=== PATIENT | male | born 1975 | race Caucasian/White ===

== ENCOUNTER 2020-03-29 15:21 | Emergency (ER) | payer SELFPAY ==
--- NOTE | 2020-03-29 16:02 | ER ---
Nurse's Notes [facility] Name: Alo Marinelli III Age: 45 yrs Sex: Male : 1975 Arrival Date: 03/29/2020 Time: 15:24 Bed 8 Private MD: Diagnosis: Unilateral inguinal hernia, without obstruction or gangrene-right Presentation: 03/29 15:32 Chief complaint: Patient states: R inguinal hernia swelling and pain since about a ca1 month now. Has gotten worse and swelling does not go down. Swelling has gone down to the R scrotum. Coronavirus screen: Proceed with normal triage. Patient denies a cough. Patient denies shortness of breath or difficulty breathing. Patient denies measured and/or subjective temperature greater than 100.4F prior to today's visit. Patient denies travel on a cruise ship or to a country the [facility] currently lists as an affected area. Patient denies contact with known and/or suspected case of COVID-19. Ebola Screen: Patient negative for fever greater than or equal to 101.5 degrees Fahrenheit, and additional compatible Ebola Virus Disease symptoms Patient denies exposure to infectious person. Patient denies travel to an Ebola-affected area in the 21 days before illness onset. No symptoms or risks identified at this time. Initial Sepsis Screen: Does the patient meet any 2 criteria? No. Patient's initial sepsis screen is negative. Does the patient have a suspected source of infection? No. Patient's initial sepsis screen is negative. Risk Assessment: Do you want to hurt yourself or someone else? Patient reports no desire to harm self or others. Onset of symptoms was March 29, 2020. 15:32 Method Of Arrival: Ambulatory ca1 15:32 Acuity: CHELSEA 2 ca1 Triage Assessment: 15:35 General: Appears in no apparent distress. uncomfortable, Behavior is cooperative, bp appropriate for age, anxious. Pain: Complains of pain in pelvis. EENT: No deficits noted. Neuro: No deficits noted. Cardiovascular: No deficits noted. Respiratory: No deficits noted. GI: No signs and/or symptoms were reported involving the gastrointestinal system. : Reports SCROTAL SWELLING. Derm: No deficits noted. Musculoskeletal: No deficits noted. Historical: - Allergies: 15:35 No Known Allergies; ca1 - Home Meds: 15:35 None [Active]; ca1 - PMHx: 15:35 None; ca1 - PSHx: 15:35 None; ca1 - Immunization history:: Adult Immunizations up to date. - Social history:: Smoking status: Patient denies any tobacco usage or history of. Screenin:47 Abuse screen: Denies threats or abuse. Denies injuries from another. Nutritional bp screening: No deficits noted. Tuberculosis screening: No symptoms or risk factors identified. Fall Risk None identified. Assessment: 15:35 General: SEE TRIAGE NOTE. bp 16:23 Reassessment: PT D/C HOME AMBULATORY, DX WITH UNILATERAL INGUINAL HERNIA WITHOUT bp ENTRAPMENT OR GANGRENE. Vital Signs: 15:32 BP 133 / 94; Pulse 57; Resp 15 S; Temp 97.6(TE); Pulse Ox 100% on R/A; Weight 58.97 kg ca1 (R); Height 5 ft. 5 in. (165.10 cm) (R); Pain 8/10; 16:23 BP 127 / 85; Pulse 65; Resp 17; Temp 97.8; Pulse Ox 100% ; bp 15:32 Body Mass Index 21.63 (58.97 kg, 165.10 cm) ca1 ED Course: 15:24 Patient arrived in ED. ag5 15:35 Triage completed. ca1 15:35 Arm band placed on right wrist. ca1 15:37 John Kuo PA is PHCP. cp 15:37 Aure Beltran MD is Attending Physician. cp 15:38 Parker Anaya, CORDELIA is Primary Nurse. bp 15:47 Patient has correct armband on for positive identification. Bed in low position. Call bp light in reach. Side rails up X2. 16:00 Chito Sykes MD is Referral Physician. cp 16:23 No provider procedures requiring assistance completed. Patient did not have IV access bp during this emergency room visit. Administered Medications: No medications were administered Outcome: 16:01 Discharge ordered by . cp 16:23 Discharged to home ambulatory. bp 16:23 Condition: stable 16:23 Discharge instructions given to patient, Instructed on discharge instructions, follow up and referral plans. medication usage, Demonstrated understanding of instructions, follow-up care, medications, Prescriptions given X 1. 16:24 Patient left the ED. bp Signatures: John Kuo PA PA cp Parker Anaya RN RN bp Makayla Chance RN RN ca1 Rain, Sade ag5
--- NOTE | 2020-03-29 16:02 | EDPHYS ---
Physician Documentation [facility] Name: Alo Marinelli III Age: 45 yrs Sex: Male : 1975 Arrival Date: 03/29/2020 Time: 15:24 Bed 8 Private MD: ED Physician Aure Beltran HPI: 03/29 15:50 This 45 yrs old Male presents to ER via Ambulatory with complaints of Hernia. cp 15:50 Onset: The symptoms/episode began/occurred 1 month(s) ago. Associated signs and cp symptoms: Pertinent negatives: abdominal pain, constipation, diarrhea, dysuria, fever, vomiting. Historical: - Allergies: 15:35 No Known Allergies; ca1 - Home Meds: 15:35 None [Active]; ca1 - PMHx: 15:35 None; ca1 - PSHx: 15:35 None; ca1 - Immunization history:: Adult Immunizations up to date. - Social history:: Smoking status: Patient denies any tobacco usage or history of. ROS: 15:55 : Positive for of the right inguinal, swelling, Negative for urinary symptoms, cp testicular pain 15:55 Eyes: Negative for injury, pain, redness, and discharge. cp 15:55 Constitutional: Negative for body aches, chills, fever, poor PO intake. 15:55 Abdomen/GI: Negative for abdominal pain, nausea, vomiting, and diarrhea. 15:55 Back: Negative for radiated pain. cp 15:55 Skin: Negative for rash. 15:55 All other systems are negative. cp Exam: 15:58 Constitutional: The patient appears in no acute distress, alert, awake, non-toxic, well cp developed, well nourished. 15:58 Head/Face: Normocephalic, atraumatic. cp 16:00 Eyes: Periorbital structures: appear normal, Conjunctiva: normal, no exudate, no cp injection, Sclera: no appreciated abnormality, Lids and lashes: appear normal, bilaterally. 16:00 ENT: External ear(s): are unremarkable, Nose: is normal, Mouth: is normal, Posterior pharynx: Airway: no evidence of obstruction, patent. 16:00 Chest/axilla: Inspection: normal. 16:00 Cardiovascular: Rate: normal, Rhythm: regular. 16:00 Respiratory: the patient does not display signs of respiratory distress, Respirations: normal. 16:00 Abdomen/GI: Inspection: abdomen appears normal, Bowel sounds: active, all quadrants, Palpation: abdomen is soft and non-tender, in all quadrants, Hernia: noted in the right inguinal area, incarceration, is not appreciated, tenderness, that is mild. 16:00 : Male external genitalia: swelling, scrotal, is noted in the right inguinal area, that is moderate. 16:00 Skin: no rash present. cp Vital Signs: 15:32 BP 133 / 94; Pulse 57; Resp 15 S; Temp 97.6(TE); Pulse Ox 100% on R/A; Weight 58.97 kg ca1 (R); Height 5 ft. 5 in. (165.10 cm) (R); Pain 8/10; 16:23 BP 127 / 85; Pulse 65; Resp 17; Temp 97.8; Pulse Ox 100% ; bp 15:32 Body Mass Index 21.63 (58.97 kg, 165.10 cm) ca1 MDM: 15:43 Patient medically screened. cp 15:55 Differential diagnosis: incarcerated hernia, testicular torsion. cp 15:56 ED course: no results found on website of [employer] prescription monitoring program. cp 16:00 Data reviewed: vital signs, nurses notes, I have discussed the patient's cp presentation/case with the attending Emergency Department Physician; and as a result, I will discharge patient. 16:00 ED course: VSS. Hernia reducible by patient. Will discharge to home with instructions cp to f/u with general surgery. Administered Medications: No medications were administered Disposition: 18:59 Co-signature as Attending Physician, Aure Beltran MD. ma2 Disposition: 03/29/20 16:01 Discharged to Home. Impression: Unilateral inguinal hernia, without obstruction or gangrene - right. - Condition is Stable. - Discharge Instructions: Inguinal Hernia, Adult. - Prescriptions for Tramadol 50 mg Oral Tablet - take 1 tablet by ORAL route every 8 hours as needed; 20 tablet. - Medication Reconciliation Form, Thank You Letter, Antibiotic Education, Prescription Opioid Use form. - Follow up: Chito Skyes MD; When: 1 - 2 days; Reason: Recheck today's complaints. - Problem is an ongoing problem. - Symptoms have improved. Signatures: Page, John, Parker Ambrocio cp, RN RN bp Aure Beltran MD MD ma2 Makayla Chance RN RN ca1 Corrections: (The following items were deleted from the chart) 16:24 16:01 03/29/2020 16:01 Discharged to Home. Impression: Unilateral inguinal hernia, bp without obstruction or gangrene - right. Condition is Stable. Forms are Medication Reconciliation Form, Thank You Letter, Antibiotic Education, Prescription Opioid Use. Follow up: Chito Sykes; When: 1 - 2 days; Reason: Recheck today's complaints. Problem is an ongoing problem. Symptoms have improved. cp 03/30 13:53 03/29 15:55 All other systems are negative, cp cp
[2020-03-29 16:48] VITALS: O2SAT 100
[2020-03-29 16:49] VITALS: BP 127/85; TEMP 97.8
== END 2020-03-29 16:24 | disposition home or self-care (01) ==
LOC: ER 15:21
DX: K40.90 Unilateral inguinal hernia, without obstruction or gangrene, not specified as recurrent (principal)
CPT/HCPCS: 99282